=== PATIENT | male | born 1975 | race Caucasian/White ===

== ENCOUNTER 2016-10-17 16:00 | Inpatient (IN) | payer OTHER ==
--- NOTE | ~2016-10-17 | HP ---
Unit #: [id number] #: [id number] Patient: ANKITA BARON [id number] [place] [address] [id number] MR#: [id number] NAME: ANKITA BARON ROOM: P182 Age: 41 Sex: M Admission Date: 10/17/2016 : 1975 Attending Physician: Cl Ware M.D. Admitting Physician: Cl Ware M.D. Primary Care Physician: Generic Doctor Not In System HISTORY AND PHYSICAL HISTORY OF PRESENT ILLNESS The patient is a 41-year-old male admitted to [facility] on 10/17/2016, for suicidal ideation. PAST MEDICAL HISTORY Patient denies. PAST SURGICAL HISTORY Patient denies. SOCIAL HISTORY He is unemployed. He is from his . He drinks 6-12 beers per day, but denies tobacco and illicit drug use. FAMILY MEDICAL HISTORY Noncontributory. ALLERGIES No known drug allergies. CURRENT MEDICATIONS The patient is not on any home medications. REVIEW OF SYSTEMS CONSTITUTIONAL: No fever or chills. HEENT: Denies any sore throat, ear pain or runny nose. CARDIOVASCULAR: Denies chest pain, irregular heart rhythm or palpitations. CHEST: Denies shortness of breath or cough. No hemoptysis. GASTROINTESTINAL: Denies nausea, vomiting, diarrhea or chronic constipation. ENDOCRINE: Denies history of increased thirst or urination. No recent significant weight loss or gain. GENITOURINARY: Denies dysuria, frequency, or hematuria. SKIN: Denies any rashes. HEMATOLOGIC: Denies history of increased bleeding or bruising. MUSCULOSKELETAL: Denies any hot, swollen joints. No generalized muscle pain. NEUROLOGIC: Denies problems with vision or speech. No frequent, severe headaches. No numbness, tingling or weakness in any extremities. Denies loss of bladder or bowel control. PHYSICAL EXAMINATION GENERAL: He is awake, alert, and oriented in no acute distress. Unit #: [id number] #: [id number] Patient: ANKITA BARON VITAL SIGNS: Temperature 99.0, heart rate 76, respirations 17, blood pressure 138/92. HEIGHT: 5 feet 10 inches WEIGHT: 180 pounds SKIN: Warm and dry without rash or lesion. HEENT: Normocephalic. TMs not viewed. Oral and nasal passages clear. Conjunctivae clear. PERRLA. EOMs intact. NECK: Supple without lymphadenopathy or thyromegaly. HEART: Regular rate and rhythm without murmur. LUNGS: Clear. ABDOMEN: Soft, nontender, without masses or hepatosplenomegaly. : Not done. EXTREMITIES: No evidence of cyanosis, clubbing or edema. Moves all without focal deficit. NEUROLOGICAL: Grossly within normal limits. Cranial Nerves: II: Visual saravia are intact. III, IV AND : Extraocular movements are intact. Pupils are equal, round and reactive to light. V: Facial sensation is grossly normal. VII: Facial movements and expression are normal. VIII: Auditory acuity grossly intact. IX, X: Uvula is midline. Phonation is normal. XI: Patient shrugs shoulders and turns head normally. XII: Tongue protrudes in the midline. Sensory and Motor Function: Sensory and motor sensation is grossly normal. Motor: moves all extremities well. Coordination: Gait is normal. Deep Tendon Reflexes: Intact. IMPRESSION 1. Psychiatric admission. 2. Alcohol dependence. RECOMMENDATIONS 1. Psychiatric, per psychiatrist. 2. Medical, no contraindications to participating in facility activities. MEDICAL PROGNOSIS Good. MEDICAL CONDITION Stable. Dictated by... Meño Estrada/jade TD: 10/18/2016 14:29 JOB #: [id number] Unit #: [id number] #: [id number] Patient: ANKITA BARON HISTORY AND PHYSICAL Page 1 of 1 X ELIZABETH BOLAÑOS APRN X HISTORY AND PHYSICAL
--- NOTE | ~2016-10-17 | PA ---
Unit #: [id number] #: [id number] Patient: ANKITA BARON [id number] [place] [address] [id number] MR#: [id number] NAME: ANKITA BARON ROOM: P182 Age: 41 Sex: M Admission Date: 10/17/2016 : 1975 Date of Assessment: Attending Physician: Cl Ware M.D. Admitting Physician: Cl Ware M.D. Primary Care Physician: Generic Doctor Not In System PSYCHIATRIC ASSESSMENT INFORMANTS The patient reliability, fair informant and chart reliability, good. CHIEF COMPLAINT Depression and suicidal ideation. HISTORY OF PRESENT ILLNESS Mr. Alarcon is a 41-year-old male, presented with the above-mentioned complaint. The patient lives at home with his . Reported feeling sad, depressed, decreased energy, low motivation, flat affect, sad, dysphoric, and suicidal ideation with the intent to kill himself by train. The patient denied any homicidal ideation or any psychotic symptom. The patient reported use of alcohol to medicate feelings of depression and anxiety. The patient reported alcohol use, age of onset 16 and marijuana, age of onset 19, last use 2 months ago. Last use of alcohol yesterday. Longest period of sobriety 2 weeks. Last period of sobriety in 2011. The patient denied any use of any IV drug abuse. No history of withdrawal, HIV, hepatitis, or blackouts. PAST PSYCHIATRIC HISTORY Unremarkable for any previous treatment. FAMILY HISTORY AND SOCIAL HISTORY The patient has a good support system. No history of abuse. No legal charges. MEDICAL HISTORY Unremarkable for any chronic medical illness. Musculoskeletal; muscle strength and tone, no atrophy or abnormal movement. Gait normal. MEDICATION HISTORY None. ALLERGIES No known drug allergies. SUBSTANCE ABUSE HISTORY None. REVIEW OF SYSTEMS HEENT: Eyes, clear. Ears, nose, mouth, and throat; clear. CARDIOVASCULAR: Unremarkable. RESPIRATORY: Unremarkable. Unit #: [id number] #: [id number] Patient: ANKITA BARON GI: Unremarkable. : Unremarkable. SKIN: Unremarkable. LYMPH NODE: Unremarkable. NEUROLOGIC: Unremarkable. ENDOCRINE: Unremarkable. HEMATOLOGIC: Unremarkable. ALLERGIC/IMMUNOLOGIC: Unremarkable. MUSCULOSKELETAL: Muscle strength and tone, no atrophy or abnormal movement. Gait normal. MENTAL STATUS EXAMINATION CONSTITUTIONAL: Measurement of vital signs; temperature 99.0, heart rate 76, respiratory rate 17, and blood pressure 138/92. Height 5 feet 10 inches and weight 180 pounds. GENERAL APPEARANCE: The patient dressed casually. The patient did not show any facial deformity. MUSCULOSKELETAL: Please see above. PSYCHIATRIC EXAMINATION Description of speech; regular rate, normal volume, normal articulation, coherent, and spontaneous. Description of thought process, goal directed. Description of association, intact. Description of abnormal psychotic thinking; the patient denied any hallucinations or delusions, but sad, depressed, alcohol abuse, and suicidal ideation. Description of the patient's judgment: Concerning everyday activity, poor. Social situation, poor. Concerning psychiatric condition, poor. Complete mental examination; oriented in time, place, and person. Recent and remote memory, fair. Attention span and concentration, fair. Language, able to name object and repeat phrases. Fund of knowledge, aware of current event and passive vocabulary intact. Mood and affect, sad and dysphoric. Insight and judgment, fair to poor. ASSETS AND LIABILITIES Assets, the patient is articulate and able to take care of his ADL. Liability, substance abuse. ADMITTING DIAGNOSES Psychiatric: Major depressive disorder, recurrent, severe, F33.2 and alcohol use disorder, moderate to severe, F10.20. Secondary diagnosis: Deferred. Medical diagnosis: None. Stressors: Psychosocial stressor. PSYCHIATRIC PLAN AND TREATMENT GOAL AND DISCHARGE PLAN 1. Advised to admit the patient on the inpatient unit. Provide safe, supportive, and structured environment. 2. Ordered labs; CBC, CMP, UA, and UDS. 3. SP1 precaution. Detox protocol and detox monitoring. 4. Advised Celexa 20 mg daily, Desyrel 50 mg at bedtime, and Vistaril 25 mg t.i.d. for depression, sleep, and anxiety. The patient to attend all the programing on the inpatient unit including group therapy, individual therapy, and chemical dependency group. Unit #: [id number] #: [id number] Patient: ANKITA BARON TREATMENT GOAL To attain euthymic mood, gain insight into his problem, and learn coping skills. DISCHARGE PLAN Plan to stabilize the patient and consider followup in outpatient program. ESTIMATED LENGTH OF STAY 3 to 5 days. Dictated by... Cl Ware M.D. AMERICO/kian TD: 10/18/2016 14:19 JOB #: [id number] PSYCHIATRIC ASSESSMENT Page 1 of 1 X Cl Ware MD PSYCHIATRIC ASSESSMENT
--- NOTE | ~2016-10-17 | DS ---
Unit #: [id number] #: [id number] Patient: ANKITA BARON [id number] [place] [address] [id number] I MR#: [id number] NAME: ANKITA BARON ROOM: [facility] Age: 41 Sex: M Admission Date: 10/17/2016 : 1975 Discharge Date: 10/19/2016 Attending Physician: Cl Ware M.D. Primary Care Physician: Generic Doctor Not In System DISCHARGE SUMMARY REASON FOR ADMISSION Depression, alcohol detox. DIAGNOSTIC STUDIES LABORATORY DATA: Remarkable for glucose 122, chloride 99. HOSPITAL COURSE The patient was admitted to inpatient unit on October 17 and discharged on 10/19/2016. The patient was treated with group therapy, individual therapy, chemical dependency group, detox protocol, detox monitoring. The patient was responsive to treatment. Subsequently, the patient was discharged with a plan to follow up in outpatient program. DISCHARGE MEDICATIONS 1. Celexa 20 mg daily for depression. 2. Vistaril 25 mg 3 times daily for anxiety. 3. Trazodone 50 mg at bedtime for sleep. DISCHARGE DIAGNOSES PSYCHIATRIC: Major depressive disorder, recurrent, severe, F33.2 Alcohol use disorder, severe, F10.20. SECONDARY: Deferred. MEDICAL: None. STRESSORS: Psychosocial stressor. FOLLOWUP CARE The patient to follow up in outpatient clinic as per director social. CONDITION ON DISCHARGE The patient pleasant, cooperative. Denied any psychotic symptom or any suicidal ideation. PROGNOSIS Guarded. DIET AND ACTIVITY As tolerated. Dictated by... Cl Ware M.D. SZC/bzg Unit #: [id number] #: [id number] Patient: ANKITA BARON TD: 10/20/2016 12:34 JOB #: [id number] DISCHARGE SUMMARY Page 1 of 1 X Cl Ware MD X DISCHARGE SUMMARY
[2016-10-18 12:35] LABS: BASOPHIL# 0.1 X10e3 (0-0.3); BASOPHIL% 1.2 % (0-2.5); EOSINOPHIL# 0.1 X10e3 (0-0.7); EOSINOPHIL% 1.3 % (0.0-7.0); HEMOGLOBIN 16.1 gm/dL (13.0-16.0); LYMPHOCYTE% 17.1 % (17.0-45.0); MEAN CELL VOLUME 91.2 FL (83-96); MEAN CORPUSCULAR HGB CONC 32.9 g/dL (30-36); MEAN PLATELET VOLUME 9.2 FL (6.5-11.5); NEUTROPHIL# 3.9 X10e3 (1.5-7.1); NEUTROPHIL% 63.4 % (40-75); PLATELET COUNT 266 X10e3 (140-420); RED BLOOD COUNT 5.37 X10e (3.90-5.60); RED CELL DISTRIBUTION WIDTH 13.7 % (11.0-15.5); WHITE BLOOD COUNT 6.2 X10e3 (4.0-10.5)
[2016-10-18 12:36] LABS: DIFF IND NO
[2016-10-18 12:48] LABS: ALBUMIN SERUM 4.8 g/dL (3.5-5.0); BILIRUBIN,TOTAL 1.1 mg/dL (0.2-2.0); BUN/CREATININE RATIO 9.09; CREATININE SERUM 1.1 mg/dL (0.6-1.4); GLOM FILT RATE Estimated 83.5 mL/min (>60); POTASSIUM 4.4 mmol/L (3.5-5.1); PROTEIN TOTAL SERUM 7.9 g/dL (6.0-8.3)
== END 2016-10-19 12:30 | DRG 885 ==
LOC: P1E 18:13
PROVIDERS: Psychiatry & Neurology Psychiatry
PROC: HZ2ZZZZ Detoxification Services for Substance Abuse Treatment (ICD-10-PCS; principal; 2016-10-17)
DX: F33.2 Major depressive disorder, recurrent severe without psychotic features (principal); R45.851 Suicidal ideations; F10.20 Alcohol dependence, uncomplicated; F41.9 Anxiety disorder, unspecified; Z56.0 Unemployment, unspecified
CPT/HCPCS: 80053; 85025; 86592